=== PATIENT | female | born 1985 | race Caucasian/White ===

== ENCOUNTER 2022-01-08 05:41 | Inpatient (IN) ==
--- NOTE | 2022-01-07 17:21 | History & Physical Report ---
Date of Service January 07, 2022 Assessment & Plan (1) Breech presentation: Plan: IUP at 41 weeks with breech presentation will proceed with LTCS unless fetus converts to vertex again on admission. if so vertex presentation , will start induction of labor with pitocin instead. History of Present Illness Primary Care Provider: Hector Galicia III, CRNP Patient is a 36 yo white female who presents at 40 6/7 weeks for primary C/S because of breech presentation. She had underwent a successful external version at 37 weeks . today the infant is now in breech presentation again with head in RUQ. She denies any regular contractions but has noticed some sporadically. otherwise complicated by AMA and history of PCOS for which she took metformin prior to . she had normal 1hr glucolas during this . GBS - negative blood type - B-negative. Allergies Allergy/AdvReac Type Severity Reaction Status Date / Time No Known Allergies Allergy Verified 01/07/22 13:25 Home Medications Medication Instructions Recorded Confirmed Type prenat.vits,jeremy,[id number] 1 tab PO DAILY #90 tab 07/27/19 01/07/22 Rx Patient History Medical History History of chicken pox PCOS (polycystic ovarian syndrome) Surgical History S/P tonsillectomy Family History Sister Depression Father Hypertension Aunt Breast cancer Grandmother (Maternal) Thyroid cancer Mother Benign breast cyst in female Denies family history of Colon cancer Ovarian cancer Prostate cancer Myocardial infarction Social History Smoking Status: Never smoker Second Hand Exposure: No; Hx Alcohol Use: No Hx Substance Use: No Preferred Language: Kazakh Communication Ability: Effective Visual Impairment: No Limitations Hearing Ability: Normal Beliefs That Will Affect Care: None marital status: marital status details: David Moss (40) [phone] Current Living Situation: Family Current Living Situation Comment: Lives with family and 1 cat. patient encourgaed to not change litter current occupational status: employed current occupation: RN Feels Safe at Home: Yes Childhood Exposure to Second-Hand Smoke: No Dental Care, Regularly: Yes Physical Activity Frequency: 1-2 Times per Week Seatbelt Use: always Sunscreen Use: Yes Review of Systems All systems reviewed & are unremarkable except as noted in HPI & below Physical Exam Constitutional: WD/WN, vitals as above Respiratory: normal respiratory effort, lungs clear to auscultation Cardiovascular: RRR, no murmur, no edema Psychiatric: A+Ox3, euthymic affect Genitourinary: OB Exam Abdomen: + breech and + estimated weight (8-9 pounds) Manual OB Exam: + cervical dilation (closed), + cervical effacement 50% and + station (nothing in the pelvis) high OB Exam Monitor Tracing: + external FHT monitor used, + external uterine monitor used, + category I and + normal FHT variability Coding Level of Care Code None Diagnoses Breech presentation O32.1XX0
[2022-01-08] MEDS ORDERED: CITRIC ACID/SODIUM CITRATE 15 ML UDC PO SCH (06:00)
[2022-01-08] MEDS ORDERED: LACTATED RINGER'S 1,000 ML IV SCH ×3 (06:00→10:00)
[2022-01-08 06:26] LABS: Basophils # (auto) 0.01 K/uL (0-0.2); Basophils % (auto) 0.1 %; Eosinophils # (auto) 0.08 K/uL (0-0.5); Eosinophils % (auto) 0.8 %; Hematocrit (blood only) 32.4 % (37-47); Hemoglobin 11.1 g/dL (12.0-16.0); Immature Granulocytes # (auto) 0.04 K/uL (0.00-0.02); Immature Granulocytes % (auto) 0.4 %; Lymphocytes # (auto) 1.38 K/uL (1.2-3.4); Lymphocytes % (auto) 13.1 %; Mean Corpuscular Hemoglobin 30.5 pg (25-34); Mean Corpuscular Hgb Conc 34.3 g/dL (32-36); Mean Platelet Volume 10.1 fL (7.4-10.4); Monocytes # (auto) 0.69 K/uL (0.11-0.59); Monocytes % (auto) 6.5 %; Neutrophils # (auto) 8.35 K/uL (1.4-6.5); Neutrophils % (auto) 79.1 %; Platelet Count 179 K/uL (130-400); RDW Coefficient of Variation 13.5 % (11.5-14.5); RDW Standard Deviation 43.8 fL (36.4-46.3); Red Blood Count 3.64 M/uL (4.2-5.4); White Blood Count 10.55 K/uL (4.8-10.8)
[2022-01-08] MEDS ORDERED: MoRPHine SULFATE PF 1 MG/ML 10 ML AMP/VIAL ONE (07:07)
--- NOTE | 2022-01-08 07:11 | Anesthesiology Consultation ---
Date of Service January 08, 2022 Assessment & Plan (1) Encounter for pre-operative examination: Chart Review Chart Review: Acceptable Risk for Surgery History Surgery Operation Date: 01/08/22 07:30 Proposed Procedures p Section (Delivery of Baby Through Abdominal Incision) - Jessica Moy MD, FACOG Height/Weight Height: 5 ft 5 in Weight: 101.605 kg Allergies Allergy/AdvReac Type Severity Reaction Status Date / Time No Known Allergies Allergy Verified 01/08/22 06:22 Medications Home Medications Medication Instructions Recorded Confirmed Last Taken prenat.vits,jeremy,ijz-[id number]-[id number] 1 tab PO DAILY #90 tab 07/27/19 01/08/22 01/07/22 10:00 Past Medical History Medical History History of chicken pox PCOS (polycystic ovarian syndrome) Past Family History Family History Sister Depression Father Hypertension Aunt Breast cancer Grandmother (Maternal) Thyroid cancer Mother Benign breast cyst in female Denies family history of Colon cancer Ovarian cancer Prostate cancer Myocardial infarction Past Surgical History Surgical History S/P tonsillectomy Social History Smoking Status: Never smoker Hx Alcohol Use: No Hx Substance Use: No substance use type: does not use Physical Exam Vital Signs Last Vital Signs Temp 36.8 C 01/08/22 06:24 Pulse 87 01/08/22 06:24 Resp 18 01/08/22 06:24 BP 133/86 01/08/22 06:24 Testing Laboratory Results 01/08/22 06:04
--- NOTE | 2022-01-08 07:40 | History & Physical Bridge Note ---
Date of Service January 08, 2022 History & Physical Bridge Note I have examined the patient, reviewed the History & Physical and in the interval since the performance of the History & Physical I have noted the following changes of clinical significance: no changes noted
[2022-01-08] MEDS ORDERED: MoRPHine SULFATE PF 1 MG/ML 10 ML AMP/VIAL INT SPINAL ONE (08:33)
[2022-01-08] MEDS ORDERED: MoRPHine SULFATE 2 MG/ML CARP IV PRN (08:33)
[2022-01-08] MEDS ORDERED: NALOXONE HCL 1 MG in SODIUM CHLORIDE 0.9% 1000ML 1,000 ML IV PRN (08:33)
[2022-01-08] MEDS ORDERED: ONDANSETRON INJ 2 MG/ML 2 ML VIAL IV PRN (08:33)
[2022-01-08] MEDS ORDERED: KETOROLAC 30 MG/ML VIAL IV PRN (08:33)
[2022-01-08] MEDS ORDERED: ePHEDrine sulfate 50 MG/ML AMP IV PRN (08:33)
[2022-01-08] MEDS ORDERED: diphenhydrAMINE 50 MG/ML VIAL IV PRN (08:33)
[2022-01-08] MEDS ORDERED: NALOXONE HCL 0.4 MG/1 ML VIAL/CARP IV PRN (08:33)
[2022-01-08] MEDS ORDERED: LACTATED RINGER'S 500 ML IV PRN (08:33)
[2022-01-08] MEDS ORDERED: NALOXONE HCL 0.08 MG in SYRINGE 1.8 ML IV PRN (08:33)
[2022-01-08] MEDS ORDERED: PROMETHAZINE HCL 12.5 MG in SODIUM CHLORIDE 0.9% 50 ML IV PRN (08:33)
[2022-01-08] MEDS ORDERED: NALBUPHINE HCL INJ 10 MG/ML AMP IV PRN (08:33)
[2022-01-08] MEDS ORDERED: DC INTRASPINAL MORPHINE SCH (08:45)
[2022-01-08] MEDS ORDERED: SODIUM CHLORIDE 0.9% 1000ML 1,000 ML IV SCH (08:45)
[2022-01-08] MEDS ORDERED: NO NARCOTICS OR SEDATIVES SCH (08:45)
[2022-01-08] MEDS ORDERED: ePHEDrine sulfate 50 MG/ML SYR ONE (08:50)
[2022-01-08] MEDS ORDERED: PHENYLEPHRINE 100MCG/ML 5ML SYR ONE (08:50)
[2022-01-08] MEDS ORDERED: ONDANSETRON INJ 2 MG/ML 2 ML VIAL ONE (08:50)
[2022-01-08] MEDS ORDERED: METOCLOPRAMIDE HCL INJ 5 MG/ML 2 ML VIAL ONE (08:50)
[2022-01-08] MEDS ORDERED: SUCCINYLCHOLINE CHLORIDE 20 MG/ML 10 ML VIAL IV ONE (08:50)
[2022-01-08] MEDS ORDERED: OXYTOCIN 10 UNITS/ML 10ML VIAL ONE (08:50)
[2022-01-08] MEDS ORDERED: PROPOFOL IV EMULSION 10 MG/ML 20 ML VIAL IV ONE (08:50)
--- NOTE | 2022-01-08 09:27 | Post Operative Brief Note ---
PG Immediate Post Op with CF Date of Surgery January 08, 2022 Pre & Post Diagnosis Operation Date: 01/08/22 07:30 Pre-Op Diagnosis: Intrauterine at 41 weeks with breech presentation Post-Op Diagnosis: Intrauterine at 41 weeks with breech presentation for living female child at 0845 I identified the patient and participated in the time-out.: Yes Procedure Operation Date: 01/08/22 07:30 Actual Procedures p Section (Delivery of Baby Through Abdominal Incision) living female child at 0845(Bilateral) - Jessica Moy MD, FACOG Surgeon Jessica Moy MD, FACOG Supervisor [place] [facility] Laura Lemons MD, Maurisio Meier MS2 Estimated Blood Loss 500 Findings Consistent with Post-Op Diagnosis Specimens Specimen Description: A: placenta-hold B: cord blood Drains Bautista Catheter (catheter placed after spinal. Pt tolerated procedure well. Bautista draining clear yellow urine. Urine output to be monitored by anesthesia intraoperatively) Anesthesia Type Spinal Complications none Disposition Accompanied Patient To Recovery: Yes
[2022-01-08] MEDS ORDERED: DIPHTHERIA/TETANUS/PERTUSSIS 0.5 ML SYR/VIAL IM ONE (09:54)
[2022-01-08] MEDS ORDERED: HYDROCORTISONE ACETATE 25 MG SUPP PR PRN (09:54)
[2022-01-08] MEDS ORDERED: MAGNESIUM HYDROXIDE SUSP 30 ML UDC PO PRN (09:54)
[2022-01-08] MEDS ORDERED: SENNA 8.6 MG TAB PO PRN (09:54)
[2022-01-08] MEDS ORDERED: BENZOCAINE 20% AER SPR 82.5 GM CAN EXT PRN (09:54)
[2022-01-08] MEDS: OXYTOCIN 20 UNITS in LACTATED RINGER'S 1,000 ML IV SCH ×2 (11:03→19:39)
--- NOTE | 2022-01-08 11:21 | Operative Report ---
PG Post Operative Report Pre & Post Diagnosis Operation Date: 01/08/22 07:30 Pre-Op Diagnosis: Intrauterine at 41 weeks with breech presentation Post-Op Diagnosis: Intrauterine at 41 weeks with breech presentation for living female child at 0845 I identified the patient and participated in the time-out.: Yes Procedure Operation Date: 01/08/22 07:30 Actual Procedures p Section (Delivery of Baby Through Abdominal Incision) living female child at 0845(Bilateral) - Jessica Moy MD, FACOG Surgeon Jessica Moy MD, FACOG Permit Review Assistant Laura Lemons MD, Maurisio Meier MS2 Estimated Blood Loss 500 Findings Consistent with Post-Op Diagnosis Specimens placenta to hold Drains Bautista catheter to straight drainage Anesthesia Type Spinal Complications none Disposition Accompanied Patient To Recovery: Yes Indications Patient is a 36-year-old 2 para 1-0-0-1 white female who presents at 41 weeks for primary section because of unstable lie. She had a successful external version performed at 37 weeks. The continued to be vertex by ultrasound since then until the day before the section. The infant was once again in breech presentation with the head in the right upper quadrant. Because of the unstable nature of the 's presentation if felt prudent to proceed with low transverse section. Patient understands the risks of procedure and all questions were answered to her satisfaction. Description of Procedure After the patient received adequate subarachnoid block she was prepped and draped in usual sterile fashion. A low transverse skin incision was made at the level of the anterior superior iliac spines. Scalpel was used to take down the adipose layer along with blunt dissection to the level of the fascia. The fascia was then entered with a scalpel and the incision was extended transversely with Johnson scissors. The edges were then grasped with Jl clamps and the underlying rectus muscles bluntly sharply dissected off of the overlying fascia. The rectus muscles were bluntly divided along the midline and the underlying peritoneum L elevated and entered bluntly. The uterus was noted to be severely levorotated with the right adnexa on the midline. The uterus was rotated so that the lower uterine segment was now on the midline. The bladder was then taken down off the anterior surface of the uterus and placed behind the bladder blade. The lower uterine segment was then entered with a scalpel and extended transversely in a blunt fashion. Membranes were ruptured for clear fluid. At this point the was now in the vertex presentation following repositioning of the uterus. Moderate fundal pressure and vacuum assistance was used to bring the head gently through the uterine incision. The rest of the was delivered with ease. The infant was vigorous and moving all 4 limbs. Cord was then clamped and cut and the handed off to the nursery team in attendance. The placenta was then expressed intact with a three-vessel cord. The uterus was exteriorized and covered with a clean lap sponge. bleeding was controlled with dilute Pitocin. Uterine cavity was explored found to be free of any placental tissue or membranes. Uterus was then closed in a running locking imbricating fashion in 2 layers with moderate 0 Monocryl. Hemostasis was noted to be excellent. The posterior cul-de-sac was suctioned for a very small amount of blood. The uterus was then placed gently back into the abdominal cavity. The uterine incision was examined once more continue to have excellent hemostasis. The gutters were explored bilaterally and were found to be free of any clot or fluid. The rectus muscles were then brought together on the midline with individual stitches of 0 Monocryl. The fascia was closed in a running fashion with 0 Vicryl. Gideon's fascia was closed in a running fashion with 2-0 plain catgut. After irrigating the adipose layer with normal saline, the skin edges were reapproximated with 4-0 Vicryl in a subcuticular manner. An occlusive dressing was placed over the incision. Urine remained clear throughout the case. Mother and infant were doing well post operatively and arrived back in labor and delivery for post op care in good condition. I attest to the content of the Intraoperative Record and any orders documented therein. Any exceptions are noted below. OB Procedure Charges 97664
[2022-01-08] MEDS: SIMETHICONE 80 MG CHEW PO SCH ×3 (13:40→22:11)
[2022-01-08] MEDS: DOCUSATE SODIUM 100 MG CAP PO SCH (22:00)
[2022-01-09] MEDS ORDERED: KETOROLAC 30 MG/ML VIAL IV PRN (02:34)
[2022-01-09] MEDS ORDERED: MEPERIDINE HCL 50 MG/ML CARP IV PRN (02:34)
[2022-01-09] MEDS ORDERED: diphenhydrAMINE 50 MG/ML VIAL IV PRN (02:34)
[2022-01-09] MEDS ORDERED: ONDANSETRON INJ 2 MG/ML 2 ML VIAL IV PRN (02:34)
[2022-01-09] MEDS ORDERED: diphenhydrAMINE Capsule 25 MG CAP PO PRN (02:34)
[2022-01-09] MEDS ORDERED: PROMETHAZINE HCL 25 MG in SODIUM CHLORIDE 0.9% 50 ML IV PRN (02:34)
[2022-01-09 06:09] LABS: Basophils # (auto) 0.01 K/uL (0-0.2); Basophils % (auto) 0.1 %; Eosinophils # (auto) 0.06 K/uL (0-0.5); Eosinophils % (auto) 0.7 %; Hematocrit (blood only) 29.6 % (37-47); Hemoglobin 9.9 g/dL (12.0-16.0); Immature Granulocytes # (auto) 0.02 K/uL (0.00-0.02); Immature Granulocytes % (auto) 0.2 %; Lymphocytes # (auto) 1.09 K/uL (1.2-3.4); Lymphocytes % (auto) 12.7 %; Mean Corpuscular Hemoglobin 30.1 pg (25-34); Mean Corpuscular Hgb Conc 33.4 g/dL (32-36); Mean Platelet Volume 10.2 fL (7.4-10.4); Monocytes # (auto) 0.57 K/uL (0.11-0.59); Monocytes % (auto) 6.6 %; Neutrophils # (auto) 6.85 K/uL (1.4-6.5); Neutrophils % (auto) 79.7 %; Platelet Count 163 K/uL (130-400); RDW Coefficient of Variation 13.5 % (11.5-14.5); RDW Standard Deviation 44.4 fL (36.4-46.3); Red Blood Count 3.29 M/uL (4.2-5.4)
--- NOTE | 2022-01-09 06:34 | Obstetrical Progress Note ---
Date of Service <All Hoffman MD - Last Filed: 01/09/22 07:05> January 09, 2022 Assessment & Plan <All Hoffman MD - Last Filed: 01/09/22 07:05> (1) delivery delivered: 36 yo now POD1 from primary LT at 40+6 due to breech presentation -Continue routine care -Vitals reviewed- HDS, afebrile -Blood type B-, GBS+ (treated with abx intrapartum), Rubella immune. Baby is Rh- -Encourage ambulation -Advance to regular diet -Pain control with ibuprofen, oxycodone PRN -Hgb 9.9 today, asymptomatic -F/u in 6 weeks with OB <Jessica Moy MD, FACOG - Last Filed: 01/09/22 07:52> (1) delivery delivered: Subjective <All Hoffman MD - Last Filed: 01/09/22 07:05> Ambulation: limited ambulation Voiding: no voiding problems Passing Gas:: No Diet Tolerance:: clear liquids Lochia:: Small Feeding Type:: breast feeding Current Pain Level(1-10): 1 Pt doing well overall, no acute complaints or distress. Pain well controlled with medication. Will walk around today. Review of Systems Denies fever/chills. Denies dyspnea, cough. Denies chest pain. Denies breast pain or discharge. Denies dysuria. Denies headache. Denies back pain. Physical Exam <All Hoffman MD - Last Filed: 01/09/22 07:05> General: Alert, oriented, no acute distress Cardiac: Regular rate and rhythm, normal S1, S2. No murmurs noted. Respiratory: Clear to auscultation b/l with good air flow entry, symmetric chest rise and fall. No wheezes or crackles. No increased work of breathing or accessory muscle use. Abdomen: Soft, nontender, nondistended. Fundus firm and palpable at 1 cm below umbilicus. Surgical incision clean, dry and intact without erythema, warmth or drainage, wound VAC in place. No guarding or rebound. Skin: No rashes or lesions Extremities: Warm, dry and well-perfused with capillary refill <2s b/l. No lower extremity edema, erythema or swelling. Negative Isak's sign b/l. Results & Data ([facility]) <All Hoffman MD - Last Filed: 01/09/22 07:05> Vital Signs (Past 12 Hours) Vital Signs Temp Pulse Resp BP Pulse Ox 01/09/22 03:37 36.5 C 88 18 102/68 98 01/09/22 03:00 20 99 01/09/22 02:00 18 99 01/09/22 01:00 20 97 01/09/22 00:30 36.8 C 73 18 110/73 99 01/09/22 00:00 20 99 01/08/22 23:00 18 98 01/08/22 22:00 20 99 01/08/22 21:00 18 100 01/08/22 20:00 18 99 01/08/22 19:00 37.1 C 85 18 107/75 100 01/08/22 18:43 20 97 <Jessica Moy MD, FACOG - Last Filed: 01/09/22 07:52> Co-Signing Physician Notes Resident Physician Supervision Note: I interviewed and examined the patient. Discussed with Dr. Hoffman and agree with findings and plan as documented in the note. Any exceptions or clarifications are listed here: [None] Documented By: Jessica Moy MD, FACOG Resident Activity Tracking <All Hoffman MD - Last Filed: 01/09/22 07:05> Resident Involvement: Resident Care Provided Care Provided: OB Delivery
[2022-01-09] MEDS ORDERED: ACETAMINOPHEN 325 MG TAB PO PRN (07:26)
[2022-01-09] MEDS: DOCUSATE SODIUM 100 MG CAP PO SCH ×2 (08:19→20:47)
[2022-01-09] MEDS: SIMETHICONE 80 MG CHEW PO SCH ×4 (08:20→20:47)
[2022-01-09] MEDS: PRENATAL VITAMIN 1 TAB PO SCH (08:20)
[2022-01-09] MEDS: FERROUS SULFATE 325 MG TAB PO SCH (08:20)
[2022-01-09] MEDS: IBUPROFEN 600 MG TAB PO PRN ×3 (11:15→23:35)
[2022-01-09] MEDS: oxyCODONE/ACETAMINOPHEN 5mg/325mg TAB PO PRN ×3 (14:22→23:34)
[2022-01-09] MEDS ORDERED: bisacodyL 5 MG TABEC PO SCH (20:00)
--- NOTE | 2022-01-10 04:44 | Obstetrical Progress Note ---
Date of Service <All Hoffman MD - Last Filed: 01/10/22 07:06> January 10, 2022 Assessment & Plan <All Hoffman MD - Last Filed: 01/10/22 07:06> (1) delivery delivered: 36 yo now POD2 from primary LTCS at 40+6 due to breech presentation -Continue routine care, may discharge today pending pt preference and inclement weather situation -Vitals reviewed- HDS, afebrile -Blood type B-, GBS+ (treated with abx intrapartum), Rubella immune. Baby is Rh- -Encourage gradual ambulation -Pain control with ibuprofen, oxycodone PRN. Oxycodone script to be sent on discharge. -Hgb 10.5 today, asymptomatic -F/u in 6 weeks with OB <Hansa Chávez MD - Last Filed: 01/10/22 07:06> (1) delivery delivered: Subjective <All Hoffman MD - Last Filed: 01/10/22 07:06> Ambulation: limited ambulation Voiding: no voiding problems Passing Gas:: Yes Diet Tolerance:: regular diet Lochia:: Small Feeding Type:: breast feeding Current Pain Level(1-10): 3 Pt doing well overall, no acute complaints or distress. Pain well controlled with medication. Did have some lightheadedness when ambulating last night and straining for bowel movement but resolved upon returning to bed. Review of Systems +Constipation Denies fever/chills. Denies dyspnea, cough. Denies chest pain. Denies breast pain or discharge. Denies dysuria. Denies headache. Denies back pain. Physical Exam <All Hoffman MD - Last Filed: 01/10/22 07:06> General: Alert, oriented, no acute distress Cardiac: Regular rate and rhythm, normal S1, S2. No murmurs noted. Respiratory: Clear to auscultation b/l with good air flow entry, symmetric chest rise and fall. No wheezes or crackles. No increased work of breathing or accessory muscle use. Abdomen: Soft, nontender, nondistended. Fundus firm and palpable at 1 cm below umbilicus. Surgical dressing without erythema or drainage- slightly tender, wound VAC in place. No guarding or rebound. Skin: No rashes or lesions Extremities: Warm, dry and well-perfused with capillary refill <2s b/l. No lower extremity edema, erythema or swelling Results & Data ([facility]) <All Hoffman MD - Last Filed: 01/10/22 07:06> Vital Signs (Past 12 Hours) Vital Signs Temp Pulse Resp BP Pulse Ox 01/09/22 23:05 36.7 C 76 14 101/67 100 01/09/22 19:40 36.7 C 94 H 17 139/84 100 01/09/22 19:15 36.6 C 89 16 121/80 99 <Hansa Chávez MD - Last Filed: 01/10/22 07:06> Co-Signing Physician Notes Resident Physician Supervision Note: I interviewed and examined the patient. Discussed with Dr. Hoffman and agree with findings and plan as documented in the note. Any exceptions or clarifications are listed here: [ ] Documented By: Hansa Chávez MD, FACOG Resident Activity Tracking <All Hoffman MD - Last Filed: 01/10/22 07:06> Resident Involvement: Resident Care Provided Care Provided: OB Delivery
[2022-01-10] MEDS: IBUPROFEN 600 MG TAB PO PRN ×3 (05:09→13:00)
[2022-01-10] MEDS: oxyCODONE/ACETAMINOPHEN 5mg/325mg TAB PO PRN ×3 (05:09→13:01)
[2022-01-10] MEDS ORDERED: bisacodyL 10 MG SUPP PR ONE (05:41)
[2022-01-10 06:30] LABS: Hematocrit (blood only) 31.2 % (37-47); Hemoglobin 10.5 g/dL (12.0-16.0)
[2022-01-10] MEDS: DOCUSATE SODIUM 100 MG CAP PO SCH (08:43)
[2022-01-10] MEDS: SIMETHICONE 80 MG CHEW PO SCH ×2 (08:43→13:00)
[2022-01-10] MEDS: PRENATAL VITAMIN 1 TAB PO SCH (08:43)
[2022-01-10] MEDS: FERROUS SULFATE 325 MG TAB PO SCH (08:46)
[2022-01-10] MEDS ORDERED: bisacodyL 10 MG SUPP PR PRN (09:54)
--- NOTE | 2022-01-14 22:27 | Discharge Summary (DS) ---
DATE OF ADMISSION: 01/08/2022 DATE OF DISCHARGE: 01/10/2022 PRINCIPAL DIAGNOSIS: Intrauterine at 41 weeks with unstable lie/breech presentation. PRINCIPAL PROCEDURE: Primary low transverse cervical section. HISTORY: The patient is a 36-year-old 2, para 1-0-0-1 white female who had presented at [facility] for primary section because of unstable lie. She had had a successful external cephali c version performed at 37 weeks; however, the changed position and was in the breech presentat ion on the day of her induction. The patient was counseled on the concerns for the unstable lie and was willing to proceed with the low transverse section. She had an uncomplicated postop cou rse. She was eating regular diet on her first postoperative day, ambulating and voiding without diff iculty. She had good pain relief with oral pain medications. Hemoglobin on admission was 11.1, jaycob tocrit of 32.4 with a white count of 10,500. First postop day, hemoglobin 9.9, hematocrit 29.6. Sec ond postop day, hemoglobin 10.5, hematocrit 31.2. She was sent home in good condition with prescriptions for Percocet 1 tablet p.o. q.6 hours p.r.n. pa in, Motrin 600 mg p.o. q.6 hours p.r.n. pain. She is to call for temperature of 101 degrees or highe r, heavy vaginal bleeding, burning with urination, increased redness, drainage of her YANCY dressing, calf tenderness, shortness of breath or any other concerns. She is to be seen in the office in [address] [place] [address] for a visit. She will be seen sooner for YANCY dressing removal. 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 Job ID: [id number]
== END 2022-01-10 14:41 | disposition home or self-care (01) | DRG 788 ==
LOC: 4S1 05:41 → 4S2 12:50